=== PATIENT | male | born 1950 | race Caucasian/White ===

== ENCOUNTER 2018-03-30 09:40 | Emergency (ER) | payer MEDICARE, BC, SELFPAY ==
[2018-03-30 09:43] VITALS: BP 127/70; PULSE 78; RESP 16; TEMP 36.6; O2SAT 96
[2018-03-30] MEDS: Cephalexin 500 MG CAP PO (10:16)
--- NOTE | 2018-03-30 10:25 | W.ED.GENAD ---
Discharge Plan Disposition Patient Disposition: HOME Condition: Stable Discharge Details Chief Complaint: Cellulitis Clinical Impression: Cellulitis of hand, right Primary Care Provider: Toi Hernandez ED Provider: Vance Rhodes Home Meds and New Rx's Prescriptions: New cephalexin [Keflex] 500 mg capsule 500 mg PO QID Qty: 20 RF: 0 Continue [id number] [Eye Drops (with povidone)] 15 ML drops 15 ml Ophthalmic RF: 0 folic acid 20 MG capsule 30 mg PO HS RF: 0 lithium carbonate 300 MG capsule 1,200 mg PO HS RF: 0 methotrexate sodium 2.5 MG tablet 2.5 mg PO DIRECTED RF: 0 levothyroxine [Synthroid] 75 MCG tablet 75 mcg PO HS RF: 0 prednisone 10 MG tablet 5 mg PO HS RF: 0 paroxetine HCl [Paxil] 30 MG tablet 30 mg PO HS RF: 0 Discharge Instructions Instructions: Cellulitis (ED) Additional Instructions: Is seeing significant worsening of symptoms over the next 24-48 hours please return immediately to the emergency department for reassessment otherwise take antibiotics until fully completed and if not improving he may follow back up with the emergency department or your primary care provider for reassessment. Otherwise keep wound clean and dry with mild soap and water. He may continue to use [id number] pain medication as needed for discomfort. Referrals: Toi Hernandez MD [Primary Care Provider] - (As needed for reassessment or if not improving.) Medical Decision Making MDM Narrative Medical decision making narrative: Patient presenting to the emergency department for chief complaint of right hand pain swelling and redness. Patient does have some small abrasions to the dorsal aspect of the hand that he states occurred approximately a week ago and had been healing fine but over the last 2 days he has noticed redness warmth swelling and aching burning and itching sensation that is getting worse and not improving. Patient denies any other medical complaints at this time. Chief working diagnosis is localized cellulitis so patient placed upon Keflex 4 times daily for 5 days and encouraged to return for new or worsening symptoms otherwise follow-up with his primary care provider as needed. After discussion of diagnosis and plan of care patient states no further needs, questions, or concerns at this time HPI - General Adult General Mode of arrival: ambulatory. Date/Time Provider Initiated Documentation: 03/30/18 09:47. Limitations to Documentation: no limitations. Information obtained by: patient and RN notes reviewed. History of Present Illness described as moderate, with intensity rated at 6. Quality is described as burning, aching and other (itchy), and is localized to the right and upper extremity (Hand). Patient reports no radiation. Patient started experiencing this day(s) (2) and it has been constant. No relieving factors improve symptom(s), No exacerbating factors reported . Patient notes no other symptoms.. Related Data Home Medications Medication Instructions Recorded Confirmed folic acid 30 mg PO HS 05/05/13 03/30/18 levothyroxine [Synthroid] 75 mcg PO HS 05/05/13 03/30/18 lithium carbonate 1,200 mg PO HS 05/05/13 03/30/18 methotrexate sodium 2.5 mg PO DIRECTED 05/05/13 03/30/18 paroxetine HCl [Paxil] 30 mg PO HS 05/06/13 03/30/18 prednisone 5 mg PO HS 05/06/13 03/30/18 [id number] 15 ml OPHTHALMIC 12/29/17 [Eye Drops (with povidone)] Previous Rx's Medication Instructions Recorded cephalexin [Keflex] 500 mg PO QID #20 cap NS 03/30/18 Allergies Allergy/AdvReac Type Severity Reaction Status Date / Time No Known Drug Allergies Allergy Unverified 12/29/17 14:28 General Stated Complaint: Cellulitis ASHLEY: 4 Review of Systems Constitutional Denies body ache(s), Denies chills and Denies fever(s) Cardiovascular Denies chest pain and Denies dyspnea Respiratory Denies dyspnea Gastrointestinal Denies abdominal pain and Denies vomiting Integumentary/Breasts Reports as per HPI, Reports erythema and Reports sores Neurologic Denies confusion and Denies sensory deficit Psychiatric Denies confusion PFSH Social History Smoking/Tobacco Use Status: Never Exam Const General: cooperative, no acute distress and not ill appearing Orientation: alert, awake and oriented x3 HENMT Mouth: moist mucous membranes Resp Effort & Inspection: normal respiratory effort, able to speak in complete sentences and no respiratory distress Cardio Rate: regular rate Rhythm: regular rhythm Neuro General: alert, awake, oriented x3, moves all extremities and no focal motor deficits Sensory Exam: no sensory deficits noted Extrem General: full ROM and normal capillary refill Right upper extremity: full ROM, normal capillary refill, elbow/forearm Details: normal to inspection, wrist Details: normal to inspection and hand Details: normal capillary refill, neuromotor exam normal, neurosensory exam normal and swelling Location: of the dorsal hand (Patient has 2 abrasions to the dorsal aspect of the hand with swelling, erythema, and warmth) Left upper extremity: normal to inspection Course Vital Signs Temperature 36.6 C 03/30/18 09:43 Pulse 78 03/30/18 09:43 Respiratory Rate 16 03/30/18 09:43 Blood Pressure 127/70 03/30/18 09:43 Pulse Oximetry 96 03/30/18 09:43 Temperature 36.6 C 03/30/18 09:43 Pulse 78 03/30/18 09:43 Respiratory Rate 16 03/30/18 09:43 Blood Pressure 127/70 03/30/18 09:43 Pulse Oximetry 96 03/30/18 09:43
--- NOTE | 2018-03-30 10:31 | ED.GENADUL_ITS ---
Discharge Plan Disposition Patient Disposition: HOME Condition: Stable Discharge Details Chief Complaint: Cellulitis Clinical Impression: Cellulitis of hand, right Primary Care Provider: Toi Hernandez ED Provider: Vance Rhodes Home Meds and New Rx's Prescriptions: New cephalexin [Keflex] 500 mg capsule 500 mg PO QID Qty: 20 RF: 0 Continue [id number] [Eye Drops (with povidone)] 15 ML drops 15 ml Ophthalmic RF: 0 folic acid 20 MG capsule 30 mg PO HS RF: 0 lithium carbonate 300 MG capsule 1,200 mg PO HS RF: 0 methotrexate sodium 2.5 MG tablet 2.5 mg PO DIRECTED RF: 0 levothyroxine [Synthroid] 75 MCG tablet 75 mcg PO HS RF: 0 prednisone 10 MG tablet 5 mg PO HS RF: 0 paroxetine HCl [Paxil] 30 MG tablet 30 mg PO HS RF: 0 Discharge Instructions Instructions: Cellulitis (ED) Additional Instructions: Is seeing significant worsening of symptoms over the next 24-48 hours please return immediately to the emergency department for reassessment otherwise take antibiotics until fully completed and if not improving he may follow back up with the emergency department or your primary care provider for reassessment. Otherwise keep wound clean and dry with mild soap and water. He may continue to use [id number] pain medication as needed for discomfort. Referrals: Toi Hernandez MD [Primary Care Provider] - (As needed for reassessment or if not improving.) Medical Decision Making MDM Narrative Medical decision making narrative: Patient presenting to the emergency department for chief complaint of right hand pain swelling and redness. Patient does have some small abrasions to the dorsal aspect of the hand that he states occurred approximately a week ago and had been healing fine but over the last 2 days he has noticed redness warmth swelling and aching burning and itching sensation that is getting worse and not improving. Patient denies any other medical complaints at this time. Chief working diagnosis is localized cellulitis so patient placed upon Keflex 4 times daily for 5 days and encouraged to return for new or worsening symptoms otherwise follow-up with his primary care provider as needed. After discussion of diagnosis and plan of care patient states no further needs, questions, or concerns at this time HPI - General Adult General Mode of arrival: ambulatory . Date/Time Provider Initiated Documentation: 03/30/18 09:47 . Limitations to Documentation: no limitations . Information obtained by: patient and RN notes reviewed . History of Present Illness described as moderate, with intensity rated at 6. Quality is described as burning, aching and other (itchy), and is localized to the right and upper extremity (Hand). Patient reports no radiation. Patient started experiencing this day(s) (2) and it has been constant. No relieving factors improve symptom(s), No exacerbating factors reported . Patient notes no other symptoms.. Related Data Home Medications Medication Instructions Recorded Confirmed folic acid 30 mg PO HS 05/05/13 03/30/18 levothyroxine [Synthroid] 75 mcg PO HS 05/05/13 03/30/18 lithium carbonate 1,200 mg PO HS 05/05/13 03/30/18 methotrexate sodium 2.5 mg PO DIRECTED 05/05/13 03/30/18 paroxetine HCl [Paxil] 30 mg PO HS 05/06/13 03/30/18 prednisone 5 mg PO HS 05/06/13 03/30/18 [id number] 15 ml OPHTHALMIC 12/29/17 [Eye Drops (with povidone)] Previous Rx's Medication Instructions Recorded cephalexin [Keflex] 500 mg PO QID #20 cap NS 03/30/18 Allergies Allergy/AdvReac Type Severity Reaction Status Date / Time No Known Drug Allergies Allergy Unverified 12/29/17 14:28 General Stated Complaint: Cellulitis ASHLEY: 4 Review of Systems Constitutional Denies body ache(s), Denies chills and Denies fever(s) Cardiovascular Denies chest pain and Denies dyspnea Respiratory Denies dyspnea Gastrointestinal Denies abdominal pain and Denies vomiting Integumentary/Breasts Reports as per HPI, Reports erythema and Reports sores Neurologic Denies confusion and Denies sensory deficit Psychiatric Denies confusion PFSH Social History Smoking/Tobacco Use Status: Never Exam Const General: cooperative, no acute distress and not ill appearing Orientation: alert, awake and oriented x3 HENMT Mouth: moist mucous membranes Resp Effort & Inspection: normal respiratory effort, able to speak in complete sentences and no respiratory distress Cardio Rate: regular rate Rhythm: regular rhythm Neuro General: alert, awake, oriented x3, moves all extremities and no focal motor deficits Sensory Exam: no sensory deficits noted Extrem General: full ROM and normal capillary refill Right upper extremity: full ROM, normal capillary refill, elbow/forearm Details : normal to inspection, wrist Details: normal to inspection and hand Details: normal capillary refill, neuromotor exam normal, neurosensory exam normal and swelling Location: of the dorsal hand (Patient has 2 abrasions to the dorsal aspect of the hand with swelling, erythema, and warmth) Left upper extremity: normal to inspection Course Vital Signs Temperature 36.6 C 03/30/18 09:43 Pulse 78 03/30/18 09:43 Respiratory Rate 16 03/30/18 09:43 Blood Pressure 127/70 03/30/18 09:43 Pulse Oximetry 96 03/30/18 09:43 Temperature 36.6 C 03/30/18 09:43 Pulse 78 03/30/18 09:43 Respiratory Rate 16 03/30/18 09:43 Blood Pressure 127/70 03/30/18 09:43 Pulse Oximetry 96 03/30/18 09:43
== END 2018-03-30 10:39 | disposition home or self-care (01) ==
PROVIDERS: Emergency Provider Nurse Practitioner Family; PCP General Practice
DX: L03.113 Cellulitis of right upper limb (principal)
CPT/HCPCS: 99283

== ENCOUNTER 2018-06-23 10:05 | Outpatient (CLI) | payer MEDICARE, BC, SELFPAY ==
[2018-06-24 10:45] LABS: PSA, Diagnostic 0.3 ng/ml (0-4.5)
== END 2018-06-23 10:25 ==
PROVIDERS: PCP General Practice; Visit Provider Urology
DX: N42.9 Disorder of prostate, unspecified (principal)
CPT/HCPCS: 36415; 84153

== ENCOUNTER → 2018-06-28 09:03 | Outpatient (BNVA) | payer MEDICARE, BC, SELFPAY | PROVIDERS: PCP General Practice; Visit Provider Urology | DX: N42.9 Disorder of prostate, unspecified (principal) | CPT/HCPCS: 99213 ==

== ENCOUNTER 2019-06-21 11:55 | Outpatient (CLI) | payer MEDICARE, BC, SELFPAY ==
[2019-06-22 09:13] LABS: PSA, Screening 0.4 ng/mL (0.0-4.5)
== END 2019-06-21 12:15 ==
PROVIDERS: PCP Nurse Practitioner; Visit Provider Urology
DX: R39.15 Urgency of urination (principal); Z12.5 Encounter for screening for malignant neoplasm of prostate
CPT/HCPCS: 36415; 84153

== ENCOUNTER → 2019-07-01 09:47 | Outpatient (BNVA) | payer MEDICARE, BC, SELFPAY | PROVIDERS: PCP Nurse Practitioner; Referring Provider General Practice; Visit Provider Urology | DX: N40.2 Nodular prostate without lower urinary tract symptoms (principal) | CPT/HCPCS: 99213 ==

== ENCOUNTER 2020-01-25 01:08 | Outpatient (CLI) | payer MEDICARE, BC, SELFPAY ==
[2020-01-25 12:06] LABS: Abs Immature Grans 0.02 k/cumm (0.0-0.09); Absolute Basophil Count 0.02 k/cumm (0.0-0.2); Absolute Eosinophil Count 0.08 k/cumm (0.0-0.7); Absolute Lymphocyte Count 1.27 k/cumm (1.2-3.4); Absolute Monocyte Count 0.75 k/cumm (0.11-0.7); Absolute Neutrophil Count 3.35 k/cumm (1.2-6.7); Basophils % 0.4; Eosinophils % 1.5; HCT 40.2 % (40.0-50.0); HGB 12.9 g/dL (13.5-17.5); Immature Grans % 0.4 %; Lymphocytes % 23.1; Mean Corp. HGB Concentration 32.1 g/dL (32.0-36.0); Mean Corpuscular Hemoglobin 29.9 pg (27.0-33.0); Mean Corpuscular Volume 93.3 fL (80-95); Mean Platelet Volume 9.8 fL (8.0-11.0); Monocytes % 13.7; Neutrophils % 60.9; Platelet Count 270 x1000/uL (130-400); RBC 4.31 m/cumm (4.50-6.00); RBC Distribution Width 16.6 % (11.8-14.1); White Blood Cell Count 5.49 k/cumm (4.4-10.8)
[2020-01-25 13:08] LABS: ALT 26 U/L (16-63); AST 23 U/L (15-37); Albumin 3.9 g/dL (3.4-5.0); Alkaline Phosphatase 154 U/L (46-116); Anion Gap 9.6 mmol/L (3-11); BUN 23 mg/dL (7-18); Bilirubin, Total 0.5 mg/dL (0.2-1.0); CO2 24.4 mmol/L (21.0-32.0); CREATININE 0.92 mg/dL (0.70-1.30); Calcium 9.4 mg/dL (8.5-10.1); Chloride 106 mmol/L (98-107); Glucose 82 mg/dL (74-106); Potassium 4.3 mmol/L (3.5-5.1); Sodium 140 mmol/L (136-145); Total Protein 6.8 g/dL (6.4-8.2)
== END 2020-01-25 01:28 ==
PROVIDERS: PCP Nurse Practitioner; Visit Provider Internal Medicine
DX: L40.50 Arthropathic psoriasis, unspecified (principal); Z79.899 Other long term (current) drug therapy
CPT/HCPCS: 36415; 80053; 85025

== ENCOUNTER 2020-08-10 02:09 | Outpatient (CLI) | payer MEDICARE, BC, SELFPAY ==
[2020-08-10 08:31] LABS: Absolute Basophil Count 0.02 10^3/uL (0.0-0.2); Absolute Eosinophil Count 0.07 10^3/uL (0.0-0.7); Absolute Lymphocyte Count 1.35 10^3/uL (1.2-3.4); Absolute Monocyte Count 0.79 10^3/uL (0.1-0.8); Absolute Neutrophil Count 1.58 10^3/uL (1.2-6.7); Basophils % 0.5; Eosinophils % 1.8; HCT 43.1 % (40.0-50.0); HGB 13.5 g/dL (13.5-17.5); Immature Grans % 2.6; Lymphocytes % 34.5; MCH 29.3 pg (27.0-33.0); MCHC 31.3 % (32.0-36.0); MCV 93.7 fL (80-95); Monocytes % 20.2; Neutrophils % 40.4; Nucleated RBC 0 %; Platelet Count 198 10^3/uL (130-400); RDW 16.8 % (11.8-14.1); RDW-SD 57.3 fL; WBC 3.91 10^3/uL (4.4-10.8)
[2020-08-10 09:23] LABS: ALT 36 U/L (16-63); AST 27 U/L (15-37); Albumin 4.1 g/dL (3.4-5.0); Alkaline Phosphatase 127 U/L (46-116); Anion Gap 7.7 mmol/L (3-11); BUN 17 mg/dL (7-18); Bilirubin, Total 0.7 mg/dL (0.2-1.0); CO2 24.3 mmol/L (21.0-32.0); CREATININE 0.8 mg/dL (0.70-1.30); Calcium 8.9 mg/dL (8.5-10.1); Chloride 105 mmol/L (98-107); Glucose 86 mg/dL (74-106); Potassium 4.2 mmol/L (3.5-5.1); Sodium 137 mmol/L (136-145); Total Protein 6.9 g/dL (6.4-8.2)
== END 2020-08-10 02:29 ==
PROVIDERS: PCP Nurse Practitioner; Visit Provider Internal Medicine
DX: L40.50 Arthropathic psoriasis, unspecified (principal); Z79.899 Other long term (current) drug therapy
CPT/HCPCS: 36415; 80053; 85025

== ENCOUNTER 2020-10-18 02:10 | Outpatient (CLI) | payer MEDICARE, BC, SELFPAY ==
[2020-10-18 08:45] LABS: Hemoglobin A1C 4.7 % (<5.7)
[2020-10-18 08:46] LABS: ALT 33 U/L (16-63); AST 23 U/L (15-37); Alkaline Phosphatase 134 U/L (46-116); Anion Gap 10.2 mmol/L (3-11); BUN 22 mg/dL (7-18); Bilirubin, Total 0.5 mg/dL (0.2-1.0); CO2 25.8 mmol/L (21.0-32.0); CREATININE 0.8 mg/dL (0.70-1.30); Calcium 9.1 mg/dL (8.5-10.1); Calculated LDL 139 mg/dL (<100); Chloride 107 mmol/L (98-107); Cholesterol 199 mg/dL (<200); Glucose 81 mg/dL (74-106); HDL Cholesterol 47 mg/dL (40-60); Potassium 4.6 mmol/L (3.5-5.1); Sodium 143 mmol/L (136-145); TSH (W/Ref FT4) 0.87 uIU/mL (0.36-3.74); Total Protein 6.8 g/dL (6.4-8.2); Triglyceride 69 mg/dL (<150)
[2020-10-18 08:49] LABS: Lithium 0.4 mmol/l (0.6-1.2)
[2020-10-18 17:32] LABS: PSA, Diagnostic 0.4 ng/mL (0.0-4.5)
== END 2020-10-18 02:11 | disposition home or self-care (01) ==
LOC: LBO 02:10
PROVIDERS: Urology; PCP Nurse Practitioner; Visit Provider Nurse Practitioner
DX: R73.03 Prediabetes (principal); E03.9 Hypothyroidism, unspecified; F31.9 Bipolar disorder, unspecified; N42.9 Disorder of prostate, unspecified; Z51.81 Encounter for therapeutic drug level monitoring; L40.50 Arthropathic psoriasis, unspecified
CPT/HCPCS: 36415; 80053; 80061; 80178; 83036; 84153; 84443

== ENCOUNTER → 2021-01-25 08:16 | Outpatient (BNVA) | payer MEDICARE, BC, SELFPAY | PROVIDERS: PCP Nurse Practitioner; Referring Provider Nurse Practitioner; Visit Provider Urology | DX: N42.9 Disorder of prostate, unspecified (principal); R35.0 Frequency of micturition; R39.15 Urgency of urination | CPT/HCPCS: 99213 ==

== ENCOUNTER 2021-01-29 02:40 | Outpatient (CLI) | payer MEDICARE, SELFPAY ==
[2021-01-29 09:24] LABS: Abs Immature Grans 0.03 10^3/uL (0.0-0.06); Absolute Basophil Count 0.02 10^3/uL (0.0-0.2); Absolute Eosinophil Count 0.11 10^3/uL (0.0-0.7); Absolute Lymphocyte Count 1.19 10^3/uL (1.2-3.4); Absolute Neutrophil Count 1.93 10^3/uL (1.2-6.7); Basophils % 0.6; Eosinophils % 3.1; HCT 42.1 % (40.0-50.0); HGB 13.2 g/dL (13.5-17.5); Immature Grans % 0.8; Lymphocytes % 33.2; MCH 28.8 pg (27.0-33.0); MCHC 31.4 % (32.0-36.0); MCV 91.7 fL (80-95); Monocytes % 8.4; Neutrophils % 53.9; Nucleated RBC 0 %; Platelet Count 232 10^3/uL (130-400); RBC 4.59 10^6/uL (4.36-5.78); RDW 17.2 % (11.8-14.1); RDW-SD 57.1 fL; WBC 3.58 10^3/uL (4.4-10.8)
[2021-01-29 10:18] LABS: ALT 34 U/L (16-63); AST 37 U/L (15-37); Albumin 4.2 g/dL (3.4-5.0); Alkaline Phosphatase 147 U/L (46-116); Anion Gap 10.2 mmol/L (3-11); BUN 21 mg/dL (7-18); Bilirubin, Total 0.6 mg/dL (0.2-1.0); CO2 23.8 mmol/L (21.0-32.0); CREATININE 0.9 mg/dL (0.70-1.30); Calcium 9.2 mg/dL (8.5-10.1); Chloride 108 mmol/L (98-107); Glucose 87 mg/dL (74-106); Potassium 4.4 mmol/L (3.5-5.1); Sodium 142 mmol/L (136-145)
== END 2021-01-29 02:41 | disposition home or self-care (01) ==
LOC: LBO 02:40
PROVIDERS: PCP Nurse Practitioner; Visit Provider Internal Medicine
DX: L40.50 Arthropathic psoriasis, unspecified (principal); Z79.899 Other long term (current) drug therapy
CPT/HCPCS: 36415; 80053; 85025

== ENCOUNTER 2021-05-15 03:18 | Outpatient (CLI) | payer MEDICARE, SELFPAY ==
[2021-05-15 07:52] LABS: Abs Immature Grans 0.06 10^3/uL (0.0-0.06); Absolute Basophil Count 0.02 10^3/uL (0.0-0.2); Absolute Eosinophil Count 0.07 10^3/uL (0.0-0.7); Absolute Lymphocyte Count 1.72 10^3/uL (1.2-3.4); Absolute Neutrophil Count 2.72 10^3/uL (1.2-6.7); Basophils % 0.4; Eosinophils % 1.3; HCT 43.5 % (40.0-50.0); HGB 13.3 g/dL (13.5-17.5); Immature Grans % 1.1; Lymphocytes % 31.9; MCH 28.6 pg (27.0-33.0); MCHC 30.6 % (32.0-36.0); MCV 93.5 fL (80-95); MPV 9.8 fL (8.0-11.0); Monocytes % 14.8; Neutrophils % 50.5; Nucleated RBC 0 %; Platelet Count 233 10^3/uL (130-400); RBC 4.65 10^6/uL (4.36-5.78); RDW 16.9 % (11.8-14.1); RDW-SD 57.3 fL; WBC 5.39 10^3/uL (4.4-10.8)
[2021-05-15 08:39] LABS: ALT 27 U/L (16-63); AST 28 U/L (15-37); Albumin 4.2 g/dL (3.4-5.0); Alkaline Phosphatase 157 U/L (46-116); Anion Gap 6.3 mmol/L (3-11); BUN 18 mg/dL (7-18); Bilirubin, Total 0.6 mg/dL (0.2-1.0); CO2 28.7 mmol/L (21.0-32.0); CREATININE 0.9 mg/dL (0.70-1.30); Calcium 9.3 mg/dL (8.5-10.1); Chloride 106 mmol/L (98-107); Glucose 85 mg/dL (74-106); Potassium 4.7 mmol/L (3.5-5.1); Sodium 141 mmol/L (136-145); Total Protein 7.3 g/dL (6.4-8.2)
== END 2021-05-15 03:19 | disposition home or self-care (01) ==
LOC: LBO 03:18
PROVIDERS: PCP Nurse Practitioner; Visit Provider Internal Medicine
DX: Z79.899 Other long term (current) drug therapy (principal); L40.50 Arthropathic psoriasis, unspecified
CPT/HCPCS: 36415; 80053; 85025

== ENCOUNTER 2021-09-17 08:23 | Outpatient (CLI) | payer MEDICARE, BC, SELFPAY ==
--- NOTE | 2021-09-17 08:15 | DI.RAD_ITS ---
Exam(s) XR SHOULDER RT COMPLETE 2+V EXAM: XR SHOULDER RT COMPLETE 2+V CLINICAL HISTORY: right shoulder pain. TECHNIQUE: 2D digital imaging was performed. COMPARISON: No exams were available for comparison FINDINGS: There is evidence of previous rotator cuff surgery. No fracture or dislocation. Moderate degenerati ve changes are noted in the glenohumeral joint. No soft tissue calcifications. No osseous lesions. Degenerative subarticular cysts are noted in the humeral head. IMPRESSION: DATA REPOSITORY: RADIATION DOSE DELIVERED:
== END 2021-09-17 08:24 | disposition home or self-care (01) ==
LOC: DIORS 08:23
PROVIDERS: PCP Nurse Practitioner; Referring Provider Nurse Practitioner; Visit Provider Student in an Organized Health Care Education/Training Program
DX: M25.511 Pain in right shoulder (principal); M75.21 Bicipital tendinitis, right shoulder; M75.101 Unspecified rotator cuff tear or rupture of right shoulder, not specified as traumatic
CPT/HCPCS: 20610; 99204; 99214; 73030; J1030

== ENCOUNTER → 2021-12-04 13:47 | Outpatient (BNVA) | payer MEDICARE, BC, SELFPAY | PROVIDERS: PCP Nurse Practitioner; Referring Provider Nurse Practitioner; Visit Provider Student in an Organized Health Care Education/Training Program | DX: M75.21 Bicipital tendinitis, right shoulder (principal); M75.101 Unspecified rotator cuff tear or rupture of right shoulder, not specified as traumatic; M19.011 Primary osteoarthritis, right shoulder | CPT/HCPCS: 99213 ==

== ENCOUNTER 2021-12-13 01:37 | Outpatient (CLI) | payer MEDICARE, BC, SELFPAY ==
[2021-12-13 07:29] LABS: Abs Immature Grans 0.06 10^3/uL (0.0-0.06); Absolute Basophil Count 0.02 10^3/uL (0.0-0.2); Absolute Eosinophil Count 0.07 10^3/uL (0.0-0.7); Absolute Lymphocyte Count 1.13 10^3/uL (1.2-3.4); Absolute Monocyte Count 1.09 10^3/uL (0.1-0.8); Absolute Neutrophil Count 2.08 10^3/uL (1.2-6.7); Basophils % 0.4; Eosinophils % 1.6; HCT 40.5 % (40.0-50.0); HGB 12.9 g/dL (13.5-17.5); Immature Grans % 1.3; Lymphocytes % 25.4; MCH 29.1 pg (27.0-33.0); MCHC 31.9 % (32.0-36.0); MCV 91 fL (80-95); MPV 9.8 fL (8.0-11.0); Monocytes % 24.5; Neutrophils % 46.8; Platelet Count 208 10^3/uL (130-400); RBC 4.44 10^6/uL (4.36-5.78); RDW 17.5 % (11.8-14.1); RDW-SD 58.3 fL; WBC 4.45 10^3/uL (4.4-10.8)
[2021-12-13 08:50] LABS: Lithium 0.5 mmol/l (0.6-1.2)
[2021-12-13 08:53] LABS: ALT 25 U/L (16-63); AST 22 U/L (15-37); Alkaline Phosphatase 151 U/L (46-116); Anion Gap 8.2 mmol/L (3-11); BUN 20 mg/dL (7-18); Bilirubin, Total 0.7 mg/dL (0.2-1.0); C-Reactive Protein 0.48 mg/dL (0.0-0.3); CO2 24.8 mmol/L (21.0-32.0); CREATININE 0.9 mg/dL (0.70-1.30); Calcium 9.1 mg/dL (8.5-10.1); Chloride 105 mmol/L (98-107); Glucose 79 mg/dL (74-106); Potassium 4.5 mmol/L (3.5-5.1); Sodium 138 mmol/L (136-145)
[2021-12-13 09:19] LABS: FREE T4 0.81 ng/dL (0.76-1.46)
== END 2021-12-13 01:38 | disposition home or self-care (01) ==
LOC: LBO 01:37
PROVIDERS: Internal Medicine; PCP Nurse Practitioner; Visit Provider Nurse Practitioner
DX: R41.3 Other amnesia (principal); F31.9 Bipolar disorder, unspecified; Z51.81 Encounter for therapeutic drug level monitoring; Z79.899 Other long term (current) drug therapy
CPT/HCPCS: 36415; 80053; 80178; 84439; 84443; 85025; 86140

== ENCOUNTER 2022-01-23 02:29 | Outpatient (CLI) | payer MEDICARE, BC, SELFPAY ==
[2022-01-23 22:31] LABS: PSA, Diagnostic 0.3 ng/mL (<=4.5)
== END 2022-01-23 02:30 | disposition home or self-care (01) ==
PROVIDERS: PCP Nurse Practitioner; Visit Provider Nurse Practitioner Gerontology
DX: N42.9 Disorder of prostate, unspecified (principal)
CPT/HCPCS: 36415; 84153

== ENCOUNTER → 2022-01-27 08:10 | Outpatient (BNVA) | payer MEDICARE, BC, SELFPAY | PROVIDERS: PCP Nurse Practitioner; Referring Provider Nurse Practitioner; Visit Provider Nurse Practitioner Gerontology | DX: N40.1 Benign prostatic hyperplasia with lower urinary tract symptoms (principal); R35.0 Frequency of micturition; N42.9 Disorder of prostate, unspecified | CPT/HCPCS: 99213 ==

== ENCOUNTER → 2022-04-17 14:53 | Outpatient (CLI) | payer MEDICARE, BC, SELFPAY ==
--- NOTE | 2022-04-17 09:30 | DI.RAD_ITS ---
Exam(s) XR KNEE LT 3V AP,LAT,ADRIANA EXAM: XR KNEE LT 3V AP,LAT,ADRIANA CLINICAL HISTORY: Lt knee pain, M25.562 TECHNIQUE: COMPARISON: CR RIGHT KNEE LIMITED 1 OR 2 VIEW from 08/15/2008 FINDINGS: Three views were obtained. There is moderate narrowing of the medial tibiofemoral cartilaginous join t space. Otherwise cartilaginous joint spaces appear fairly well maintained. There is a probable humphrey int effusion noted on the lateral view. There are mild marginal osteophytes of all 3 joints of the knee. No other significant bony abnormali ty seen. IMPRESSION: DJD predominantly involving medial tibiofemoral joint. RADIATION DOSE DELIVERED: Total DLP
== END ==
PROVIDERS: PCP Nurse Practitioner; Visit Provider Family Medicine
DX: M17.12 Unilateral primary osteoarthritis, left knee (principal)
CPT/HCPCS: 73562

== ENCOUNTER 2022-04-29 03:38 | Outpatient (CLI) | payer MEDICARE, BC, SELFPAY ==
[2022-04-29 13:16] LABS: Abs Immature Grans 0.04 10^3/uL (0.0-0.06); Absolute Basophil Count 0.01 10^3/uL (0.0-0.2); Absolute Eosinophil Count 0.08 10^3/uL (0.0-0.7); Absolute Lymphocyte Count 1.39 10^3/uL (1.2-3.4); Absolute Monocyte Count 0.68 10^3/uL (0.1-0.8); Absolute Neutrophil Count 3.54 10^3/uL (1.2-6.7); Basophils % 0.2; Eosinophils % 1.4; HCT 37.7 % (40.0-50.0); HGB 11.6 g/dL (13.5-17.5); Immature Grans % 0.7; Lymphocytes % 24.2; MCH 27.8 pg (27.0-33.0); MCHC 30.8 % (32.0-36.0); MCV 90 fL (80-95); MPV 10.2 fL (8.0-11.0); Monocytes % 11.8; Neutrophils % 61.7; Platelet Count 344 10^3/uL (130-400); RBC 4.18 10^6/uL (4.36-5.78); RDW 16.2 % (11.8-14.1); RDW-SD 53.9 fL; WBC 5.74 10^3/uL (4.4-10.8)
[2022-04-29 13:36] LABS: ALT 21 U/L (16-63); AST 34 U/L (15-37); Albumin 3.5 g/dL (3.4-5.0); Alkaline Phosphatase 160 U/L (46-116); Anion Gap 6.8 mmol/L (3-11); BUN 19 mg/dL (7-18); Bilirubin, Total 0.5 mg/dL (0.2-1.0); C-Reactive Protein 2.77 mg/dL (0.0-0.3); CO2 26.2 mmol/L (21.0-32.0); Calcium 9.4 mg/dL (8.5-10.1); Chloride 105 mmol/L (98-107); Estimated GFR 81.47 (mL/min/1.73m2); Glucose 101 mg/dL (74-106); Potassium 4.1 mmol/L (3.5-5.1); Sodium 138 mmol/L (136-145); Total Protein 7.7 g/dL (6.4-8.2)
[2022-04-29 22:57] LABS: PSA, Diagnostic 0.4 ng/mL (<=4.5)
== END 2022-04-29 03:39 | disposition home or self-care (01) ==
PROVIDERS: Nurse Practitioner Gerontology; PCP Nurse Practitioner; Visit Provider Internal Medicine
DX: L40.50 Arthropathic psoriasis, unspecified; Z79.899 Other long term (current) drug therapy; N42.9 Disorder of prostate, unspecified
CPT/HCPCS: 36415; 80053; 84153; 85025; 86140

== ENCOUNTER → 2022-04-30 11:16 | Outpatient (BNVA) | payer MEDICARE, BC, SELFPAY | PROVIDERS: PCP Nurse Practitioner; Referring Provider Nurse Practitioner; Visit Provider Student in an Organized Health Care Education/Training Program | DX: S83.412A Sprain of medial collateral ligament of left knee, initial encounter (principal); X58.XXXA Exposure to other specified factors, initial encounter | CPT/HCPCS: 99214; J1030 ==

== ENCOUNTER 2022-05-16 00:25 | Outpatient (CLI) | payer MEDICARE, BC, SELFPAY ==
--- NOTE | 2022-05-16 08:15 | DI.MRI_ITS ---
Exam(s) MR LOWER JOINT LT WO EXAM: MR LOWER JOINT LT WO CLINICAL HISTORY: L KNEE PAIN, ? MCL, ? ACL,M25.562 TECHNIQUE: Multiplanar multisequence MRI of the knee was performed. COMPARISON: CR XR KNEE LT 3V AP,LAT,ADRIANA from 04/17/2022 FINDINGS: EFFUSION: Is moderate size knee joint effusion with synovial thickening. There is no significant Radha er's cyst in the popliteal fossa. MARROW: There is bone contusion signal seen in the medial half of the tibial plateau extending down into the metaphysis with relative sparing of the lateral tibial plateau. There is a degenerative suba rticular cyst subjacent tibial spines, measuring 5 x 6 millimeters. Also bone edema evident in the pa tella, posteriorly. No ominous osseous lesions. PATELLOFEMORAL COMPARTMENT: The quadriceps tendon is intact. The patellar ligament is intact. There is significant thinning of the retropatellar cartilage, more so over the lateral than the media l facet where there is some full-thickness thinning superiorly and there is subarticular edema in the posterior patella. No intraosseous signal to suggest recent patellar dislocation and there are no p atellar retinacular tears.There is no intraosseous signal to suggest recent patellar dislocation. The re are no patellar retinacular tears. CRUCIATE LIGAMENTS: There is abnormal signal throughout the ACL consistent with intrasubstance tearin g. Few fascicular bundles are still present but are discontinuous.The posterior cruciate ligament is intact. MEDIAL COMPARTMENT/MEDIAL MENISCUS: There is significant narrowing of the medial compartment and ther e are tears of both the anterior posterior horns of medial meniscus. There is also some truncation o f the medial meniscus which may reflect prior surgery. There is thinning of the cartilage over the m edial femoral condyle. Over in the anterior weight-bearing surface this is full-thickness but not as sociated with prominent subarticular edema in the medial condyle. There are no osteochondral defects .. There are no osteophytes in the medial compartment. MEDIAL COLLATERAL LIGAMENT: There is fluid interposed between the superficial and deep components of the MCL. However no high-grade full-thickness tear of this structure evident. LATERAL COMPARTMENT/LATERAL MENISCUS: There is an element of truncation of the medial aspect of the l ateral meniscus. Main components of the anterior and posterior horns are relatively intact. No prom inent bone edema in the medial compartment. Some degenerative cartilage loss, most prominent over th e mid aspect of the weight-bearing surface.There are no osteophytes in the lateral compartment. ILIOTIBIAL BAND: Intact LATERAL COLLATERAL LIGAMENT COMPLEX: Fibular collateral ligament and biceps femoris component are int act. However, there is significant signal abnormality in the popliteus muscle and fluid at the muscu lotendinous junction. However, the popliteus tendon does not appear torn nor displaced. IMPRESSION: 1. Significant abnormal signal throughout the anterior cruciate ligament consistent with tear of this structure. PCL is intact 2. There are tears and tiffanie a martin of both horns of the medial meniscus as well as degenerative khan ges in the medial compartment and subarticular bone edema in the medial compartment including the tib ial plateau. 3. Fluid seen between the superficial and deep components of the medial collateral ligament. However , there is no full-thickness tear of this structure. 4. Chondromalacia of the retropatellar cartilage noted with some full-thickness thinning over the lat eral facet and subjacent edema in the patella. 5. Popliteus muscle edema and fluid at the musculotendinous junction this component of the lateral c ollateral ligament complex. However, there is no high-grade tear of this structure and the other 2 c omponents of the LCL complex are intact. Other findings as above DATA REPOSITORY:
== END 2022-05-16 00:45 ==
LOC: DI 00:26
PROVIDERS: PCP Nurse Practitioner; Visit Provider Student in an Organized Health Care Education/Training Program
DX: M22.42 Chondromalacia patellae, left knee (principal); S83.242A Other tear of medial meniscus, current injury, left knee, initial encounter; X58.XXXA Exposure to other specified factors, initial encounter
CPT/HCPCS: 73721

== ENCOUNTER → 2022-06-17 08:19 | Outpatient (BNVA) | payer MEDICARE, BC, SELFPAY | PROVIDERS: PCP Nurse Practitioner Family; Referring Provider Nurse Practitioner; Visit Provider Student in an Organized Health Care Education/Training Program | DX: M17.12 Unilateral primary osteoarthritis, left knee (principal); X58.XXXA Exposure to other specified factors, initial encounter; S83.412A Sprain of medial collateral ligament of left knee, initial encounter | CPT/HCPCS: 20610; 99214; J1030 ==

== ENCOUNTER 2022-08-19 09:03 | Outpatient (CLI) | payer MEDICARE, BC, SELFPAY ==
--- NOTE | 2022-08-19 08:30 | DI.RAD_ITS ---
Exam(s) XR SHOULDER LT COMPLETE 2+V EXAM: XR SHOULDER LT COMPLETE 2+V CLINICAL HISTORY: left shoulder pain. TECHNIQUE: 2D digital imaging was performed. COMPARISON: CR XR SHOULDER RT COMPLETE 2+V from 09/17/2021 FINDINGS: Two views: No evidence fracture nor dislocation nor abnormal soft tissue calcifications in the subacromial space . There is widening of the AC joint which may be related to prior surgery. There are mild-moderate degenerative changes in the glenohumeral joint evident. No significant osseous lesions. IMPRESSION: Moderate degenerative changes in the glenohumeral joint. Possible prior surgery given the appearance of the AC joint. I note that this patient has had prior surgery in the opposite-right shoulder. DATA REPOSITORY: RADIATION DOSE DELIVERED:
== END 2022-08-19 09:04 | disposition home or self-care (01) ==
LOC: DIORS 09:04
PROVIDERS: PCP Nurse Practitioner Family; Referring Provider Nurse Practitioner Family; Visit Provider Student in an Organized Health Care Education/Training Program
DX: M75.101 Unspecified rotator cuff tear or rupture of right shoulder, not specified as traumatic (principal); M75.21 Bicipital tendinitis, right shoulder; M19.011 Primary osteoarthritis, right shoulder; M19.012 Primary osteoarthritis, left shoulder; M17.12 Unilateral primary osteoarthritis, left knee; S83.512A Sprain of anterior cruciate ligament of left knee, initial encounter; X58.XXXA Exposure to other specified factors, initial encounter
CPT/HCPCS: 20610; 99214; 73030; J1030

== ENCOUNTER → 2022-09-26 08:31 | Outpatient (BNVA) | payer MEDICARE, BC, SELFPAY | PROVIDERS: PCP Nurse Practitioner Family; Referring Provider Nurse Practitioner Family; Visit Provider Student in an Organized Health Care Education/Training Program | DX: M17.12 Unilateral primary osteoarthritis, left knee (principal) | CPT/HCPCS: 99213 ==

== ENCOUNTER 2022-11-14 15:16 | Outpatient (CLI) | payer MEDICARE, BC, SELFPAY ==
[2022-11-14 09:06] LABS: TSH 2.34 uIU/mL (0.36-3.74)
[2022-11-17 12:50] LABS: Lyme Ab w Rflx to Lyme Confirm Negative (Negative)
[2022-11-18 14:51] LABS: Anaplasma phagocytophilum Negative (Negative); B. miyamotoi PCR Negative (Negative); Babesia divergens/MO-1 Negative (Negative); Babesia duncani Negative (Negative); Babesia microti Negative (Negative); Ehrlichia chaffeensis Negative (Negative); Ehrlichia ewingii/canis Negative (Negative); Ehrlichia muris eauclairensis Negative (Negative)
== END 2022-11-14 15:17 | disposition home or self-care (01) ==
LOC: LBO 15:17
PROVIDERS: PCP Nurse Practitioner Family; Visit Provider Nurse Practitioner Family
DX: E03.9 Hypothyroidism, unspecified (principal); R53.83 Other fatigue; R41.3 Other amnesia
CPT/HCPCS: 36415; 87798; 84443; 86618

== ENCOUNTER 2023-01-19 02:47 | Outpatient (CLI) | payer MEDICARE, BC, SELFPAY ==
[2023-01-20 17:26] LABS: PSA, Diagnostic 0.3 ng/mL (<=6.5)
== END 2023-01-19 02:48 | disposition home or self-care (01) ==
LOC: LBO 02:48
PROVIDERS: PCP Nurse Practitioner Family; Visit Provider Nurse Practitioner Gerontology
DX: N42.9 Disorder of prostate, unspecified (principal); R39.89 Other symptoms and signs involving the genitourinary system
CPT/HCPCS: 36415; 84153

== ENCOUNTER → 2023-01-26 08:10 | Outpatient (BNVA) | payer MEDICARE, BC, SELFPAY | PROVIDERS: PCP Nurse Practitioner Family; Visit Provider Nurse Practitioner Gerontology | DX: N42.9 Disorder of prostate, unspecified (principal) | CPT/HCPCS: 99213 ==

== ENCOUNTER → 2023-02-04 10:28 | Outpatient (BNVA) | payer MEDICARE, BC, SELFPAY | PROVIDERS: PCP Nurse Practitioner Family; Referring Provider Nurse Practitioner Family; Visit Provider Student in an Organized Health Care Education/Training Program | DX: M75.21 Bicipital tendinitis, right shoulder (principal); M19.011 Primary osteoarthritis, right shoulder; M19.012 Primary osteoarthritis, left shoulder | CPT/HCPCS: 20610; 99213; J1030 ==

== ENCOUNTER 2023-02-12 09:54 | Outpatient (CLI) | payer MEDICARE, BC, SELFPAY ==
[2023-02-12 09:26] LABS: Abs Immature Grans 0.04 10^3/uL (0.0-0.06); Absolute Basophil Count 0.03 10^3/uL (0.0-0.2); Absolute Eosinophil Count 0.06 10^3/uL (0.0-0.7); Absolute Lymphocyte Count 1.29 10^3/uL (1.2-3.4); Absolute Monocyte Count 0.69 10^3/uL (0.1-0.8); Absolute Neutrophil Count 4.05 10^3/uL (1.2-6.7); Basophils % 0.5; HCT 40.7 % (40.0-50.0); HGB 13.1 g/dL (13.5-17.5); Immature Grans % 0.6; Lymphocytes % 20.9; MCH 28.4 pg (27.0-33.0); MCHC 32.2 % (32.0-36.0); MCV 88 fL (80-95); MPV 10.3 fL (8.0-11.0); Monocytes % 11.2; Neutrophils % 65.8; Platelet Count 293 10^3/uL (130-400); RBC 4.61 10^6/uL (4.36-5.78); RDW 17.3 % (11.8-14.1); RDW-SD 54.6 fL; WBC 6.16 10^3/uL (4.4-10.8)
[2023-02-12 09:34] LABS: ESR 12 mm/hr (0-20)
[2023-02-12 09:37] LABS: ALT 23 U/L (16-63); AST 19 U/L (15-37); Alkaline Phosphatase 142 U/L (46-116); Anion Gap 8.7 mmol/L (3-11); BUN 22 mg/dL (7-18); Bilirubin, Total 0.5 mg/dL (0.2-1.0); CO2 23.3 mmol/L (21.0-32.0); Chloride 106 mmol/L (98-107); Estimated GFR 80.97 (mL/min/1.73m2); Glucose 101 mg/dL (74-106); Potassium 3.9 mmol/L (3.5-5.1); Sodium 138 mmol/L (136-145); Total Protein 7.4 g/dL (6.4-8.2)
== END 2023-02-12 09:55 | disposition home or self-care (01) ==
LOC: LBO 09:55
PROVIDERS: PCP Nurse Practitioner Family; Visit Provider Internal Medicine
DX: Z79.899 Other long term (current) drug therapy (principal); L40.50 Arthropathic psoriasis, unspecified
CPT/HCPCS: 36415; 80053; 85652; 85025

== ENCOUNTER 2023-04-17 09:44 | Outpatient (CLI) | payer MEDICARE, BC, SELFPAY ==
--- NOTE | 2023-04-17 08:45 | DI.RAD_ITS ---
Exam(s) XR HIP RT COMPLETE AP PELVIS EXAM: XR HIP RT COMPLETE AP PELVIS CLINICAL HISTORY: RIGHT HIP PAIN. TECHNIQUE: 2D digital imaging was performed. Two views COMPARISON: No exams were available for comparison FINDINGS: BONES: No acute fracture is present. No bony destructive lesion is seen. JOINTS: No dislocation present. Mild left hip joint space narrowing. Moderate right joint space na rrowing. Mild spurring at the acetabulum. Subchondral cyst in superior acetabulum. Mild degenerati ve changes of the SI joints. Pubic symphysis unremarkable. SOFT TISSUE: Normal. IMPRESSION: Moderate degenerative changes of the right hip. Mild degenerative changes of the left hip. DATA REPOSITORY: RADIATION DOSE DELIVERED:
== END 2023-04-17 09:45 | disposition home or self-care (01) ==
LOC: DIORS 09:45
PROVIDERS: PCP Nurse Practitioner Family; Referring Provider Nurse Practitioner Family; Visit Provider Student in an Organized Health Care Education/Training Program
DX: M25.551 Pain in right hip (principal); M16.11 Unilateral primary osteoarthritis, right hip; M25.851 Other specified joint disorders, right hip; M25.852 Other specified joint disorders, left hip
CPT/HCPCS: 99214; 73502

== ENCOUNTER → 2023-04-21 08:47 | Outpatient (BNVA) | payer MEDICARE, BC, SELFPAY | PROVIDERS: PCP Nurse Practitioner Family; Referring Provider Nurse Practitioner Family; Visit Provider Student in an Organized Health Care Education/Training Program | DX: M19.012 Primary osteoarthritis, left shoulder (principal); M19.011 Primary osteoarthritis, right shoulder; M75.21 Bicipital tendinitis, right shoulder | CPT/HCPCS: 99213 ==

== ENCOUNTER → 2023-04-30 13:48 | Outpatient (BNVA) | payer MEDICARE, BC, SELFPAY | PROVIDERS: PCP Nurse Practitioner Family; Referring Provider Nurse Practitioner Family; Visit Provider Physician Assistant | DX: M16.11 Unilateral primary osteoarthritis, right hip (principal) | CPT/HCPCS: 20611; J1040 ==

== ENCOUNTER 2023-07-20 13:58 | Outpatient (CLI) | payer MEDICARE, BC, SELFPAY ==
[2023-07-20 13:19] LABS: Abs Immature Grans 0.02 10^3/uL (0.0-0.06); Absolute Basophil Count 0.03 10^3/uL (0.0-0.2); Absolute Lymphocyte Count 1.78 10^3/uL (1.2-3.4); Absolute Monocyte Count 0.48 10^3/uL (0.1-0.8); Absolute Neutrophil Count 3.29 10^3/uL (1.2-6.7); Basophils % 0.5; Eosinophils % 1.8; HCT 42.1 % (40.0-50.0); HGB 13.2 g/dL (13.5-17.5); Immature Grans % 0.4; Lymphocytes % 31.2; MCH 27.7 pg (27.0-33.0); MCHC 31.4 % (32.0-36.0); MCV 88 fL (80-95); MPV 9.6 fL (8.0-11.0); Monocytes % 8.4; Neutrophils % 57.7; Platelet Count 284 10^3/uL (130-400); RBC 4.76 10^6/uL (4.36-5.78); RDW 17.3 % (11.8-14.1); RDW-SD 56.2 fL
== END 2023-07-20 13:59 | disposition home or self-care (01) ==
LOC: LBO 13:58
PROVIDERS: PCP Nurse Practitioner Family; Visit Provider Internal Medicine
DX: L40.50 Arthropathic psoriasis, unspecified (principal)
CPT/HCPCS: 36415; 85025

== ENCOUNTER 2023-08-13 09:54 | Outpatient (CLI) | payer MEDICARE, BC, SELFPAY ==
[2023-08-13 12:59] LABS: Vitamin B12 483 pg/mL (193-986)
[2023-08-13 13:21] LABS: Lithium 0.5 mmol/l (0.6-1.2)
== END 2023-08-13 09:55 | disposition home or self-care (01) ==
LOC: LOS 09:55
PROVIDERS: PCP Nurse Practitioner Family; Visit Provider Nurse Practitioner Family
DX: E53.8 Deficiency of other specified B group vitamins (principal); F31.9 Bipolar disorder, unspecified; Z51.81 Encounter for therapeutic drug level monitoring
CPT/HCPCS: 36415; 80178; 82607

== ENCOUNTER 2023-11-06 11:44 | Day surgery (SDC) | payer MEDICARE, BC, SELFPAY ==
--- NOTE | 2023-11-06 12:30 | ANES.PREOP_ITS ---
General Info Date of Service Date Performed: 11/06/23 Height: 6 ft 2 in Weight: 92.986 kg Body Mass Index (BMI): 26.3 Surgical Procedure: Operation Date: 11/06/23 15:25 Proposed Procedure Side Surgeon p Cataract Extraction with IOL Implant w/Glaucoma Stent Right Errol Bermudez MD Meds Allergies and Home Medications Allergies Allergy/AdvReac Type Severity Reaction Status Date / Time No Known Allergies Allergy Verified 11/06/23 12:52 Home Medication Medication Instructions Recorded tetrahydrozoline 0.05 %- 15 ml ophthalmic (eye) DIRECTED 12/29/17 0.1 %[id number] 1 %-povdn 1 % eye drops (Eye Drops (with povidone)) naproxen sodium 220 mg capsule 220 mg PO BID PRN 06/17/22 (Aleve) folic acid 1 mg tablet 1 mg PO DAILY 02/12/23 methotrexate sodium 2.5 mg tablet 15 mg PO QWEEK 02/12/23 levothyroxine 75 mcg tablet 75 mcg PO HS #90 tabs 02/19/23 (Synthroid) lithium carbonate 300 mg capsule 600 mg (2 x 300 mg) PO HS #180 caps 04/06/23 paroxetine HCl 20 mg tablet 20 mg PO DAILY #90 tabs 09/01/23 Current Visit Medications: Current Medications Generic Name Dose Route Start Last Admin Trade Name Freq PRN Reason Stop Dose Admin Acetaminophen 1,000 mg 11/06/23 06:00 Acetaminophen 500 Mg Tab PO 12/06/23 05:59 Q4H PRN PRN Balanced Salt Solution 500 ml 11/06/23 06:00 Balanced Salt Soln.-Plus 500 Ml Bag OP 12/06/23 05:59 DIRECTED [facility] Miscellaneous Medication 0 ml 11/06/23 06:00 Prednisolone 1%, Moxifloxacin 0.5%, Bromfenac 0.09% 5ml Btl OD 12/06/23 05:59 DIRECTED [facility] Miscellaneous Medication 0 ml 11/06/23 06:00 Tropicam./Phenyleph. 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 Femoroacetabular impingement of right hip M25.851 Degenerative joint disease of right hip M16.11 Hypothyroid E03.9 Bipolar 1 disorder F31.9 Psoriatic arthritis L40.50 Fatigue R53.83 Arthritis of left shoulder region M19.012 Arthritis of right shoulder region M19.011 Arthritis of knee, left M17.12 Knee pain, left M25.562 Tendonitis of long head of biceps brachii of right shoulder M75.21 Memory problem R41.3 Tinnitus 10/24/13 H93.19 Medical History Medical History 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 Left ACL tear MCL sprain of left knee Rotator cuff tear, right Temporal arteritis Surgical History Surgical History History of total knee arthroplasty 2015 S/P shoulder surgery 2013 acromioplasty left 2014 right rotator cuff exploration Tobacco Smoking/Tobacco Use Status: Never Passive smoking exposure: Yes Second hand exposure: Yes Alcohol Alcohol Intake: former Substance Use Substance use type: does not use Vital Signs and Lab Results Vital Signs Most Recent Vital Signs in EMR: Temp Pulse Resp BP Pulse Ox 36.4 C L 78 16 126/80 97 11/06/23 12:45 11/06/23 12:45 11/06/23 12:45 11/06/23 12:45 11/06/23 12:45 Lab Results Blood Type / Crossmatch: No Data to Display Complete Blood Count: No Data to Display Complete Metabolic Panel: No Data to Display Liver Function Panel: No Data to Display Coagulation Panel: No Data to Display Cardiac Panel: No Data to Display Arterial Blood Gas: No Data to Display Venous Blood Gas: No Data to Display Pancreas Panel: No Data to Display Thyroid Panel: No Data to Display Infectious Disease: No Data to Display Blood Cultures: No Data to Display Toxicology Panel: No Data to Display Anesthesia Assessment and Plan Anesthesia History Personal History: No History of Anesthesia Complications Family History: No Family History of Anesthesia Complications Exercise Tolerance Exercise Tolerance: Metabolic Equivalents>4 Cardiac & Pulmonary Exam Cardiac Exam: Normal S1/S2 Heart Sounds Pulmonary Exam: Clear Bilateral Breath Sounds Implantable Cardiac Device Does patient have a Pacemaker or an ICD?: No Airway Exam Known Difficult Airway: No Mallampati Class: 3 Mouth Opening: Normal (> 3cm) Thyromental Distance: Less than 3 cm Neck Range of Motion: Full ROM Neck Circumference: Normal Teeth Condition: Normal Dentition and Removable Dentures/Plates Upper ASA Classification ASA Score: ASA 2 Emergency Case?: No NPO Status NPO Status: NPO Clears >2 hours, Solids >8 hours Anesthesia Plan Resuscitation Status: Full Code Anesthesia Technique: MAC Anesthesia Airway Planned: Natural Airway Monitors Used: Standard Monitors Preoperative Comments:: 73 yo male for cataract removal. would like MKO. Sig PMHx: bipolar (lithium, paroxetine), psoriatic arthritis (methotrexate, followed by [facility] rheum), hypothyroid (on replacement), never smoker.
[2023-11-06 12:33] VITALS: BMI 26.3
[2023-11-06 12:45] VITALS: BP 126/80; PULSE 78; RESP 16; TEMP 36.4; O2SAT 97
[2023-11-06] MEDS: Lidocaine 1% Pres-Free 5 ML VIAL (14:22)
[2023-11-06] MEDS: Duovisc Viscoelastic System EACH 1 EACH (14:25)
[2023-11-06] MEDS: Povidone-Iodine Ophth 30 ML BTL (14:25)
[2023-11-06] MEDS: Tetracaine 0.5% 4 ML BTL OD (14:26)
[2023-11-06] MEDS: Balanced Salt Soln.-PLUS 500 ML BAG OP (14:26)
[2023-11-06 14:55] VITALS: BP 124/78; PULSE 70; RESP 16; TEMP 36.4; O2SAT 96
--- NOTE | 2023-11-06 14:55 | W.PM.DSUDISC ---
Date of service: 11/06/23 Time of Service: 14:55 Discharge Plan Disposition Patient Disposition: Home Discharge Details Attending Provider: Errol Bermudez Primary Care Provider: Araceli Dubois Home Meds and New Rx's Prescriptions: No Action naproxen sodium [Aleve] 220 mg capsule 220 mg PO BID PRN Eye Drops (with povidone) 15 ML drops 15 ml Ophthalmic DIRECTED folic acid 1 mg tablet 1 mg PO DAILY levothyroxine [Synthroid] 75 mcg tablet 75 mcg PO HS Qty: 90 4RF lithium carbonate 300 mg capsule 600 mg PO HS Qty: 180 4RF paroxetine HCl 20 mg tablet 20 mg PO DAILY Qty: 90 3RF methotrexate sodium 2.5 mg tablet 15 mg PO QWEEK Patient Comments: takes 4 tabs Q thursday and Thursday Discharge Instructions Stand Alone Forms: [facility] Post-Op Cataract, Daniela Franklin (DSU) Discharge Orders Discharge Orders: Discharge Order (Routine); Ordered 11/06/23 Ordered By: Errol Bermudez DS: Diagnosis Discharge Diagnosis (1) Nuclear age-related cataract, right eye: Status: Resolved (2) Primary open-angle glaucoma, right eye, moderate stage: Status: Chronic
--- NOTE | 2023-11-06 14:57 | ROE_ITS ---
Date of service: 11/06/23 Time of Service: 14:57 Operative Note Operative Note DATE OF PROCEDURE: 11/06/23 PRE-OP DIAGNOSIS: Nuclear cataract, right eye Primary open-angle glaucoma, right eye, moderate stage POST-OP DIAGNOSIS: same PROCEDURE: 1. Cataract extraction using phacoemulsification with intraocular lens implant, right eye 2. Insertion of multiple anterior segment aqueous drainage devices (Glaukos iStent inject) into trabecular meshwork, right eye SURGEON: Errol Bermudez ANESTHESIA TYPE: Local By Surgeon and MAC Refer to Anesthesia Record PATHOLOGY: none sent COMPLICATIONS: None Patient was transported to: same day Patient's condition: stable Implants: 1. Delfin Clareon CCA0T0 intraocular lens 2. Glaukos iStent inject trabecular micro-bypass stents Indications: 1. Progressive decreased vision due to cataract, right eye 2. Open angle glaucoma, right eye Procedure Description: CATARACT SURGERY OPERATIVE REPORT PREOPERATIVE DIAGNOSIS: Nuclear cataract, right eye Primary open-angle glaucoma, right eye, moderate stage POSTOPERATIVE DIAGNOSIS: Same OPERATION: 1. Cataract extraction using phacoemulsification with posterior chamber intraocular lens implant, right eye. 2. Insertion of multiple anterior segment aqueous drainage devices (Glaukos iStent inject) into trabecular meshwork, right eye IOL: IOL Delfin Clareon CCA0T0 intraocular lens IOL Power: + 18.5 diopters IOL Serial Number: [id number] Optic Diameter: 6.0mm Haptic/Overall Diameter: 13.0mm PHACO INFO: Delfin Centurion Vision System with OZil and Active Fluidics Cumulative Dispersed Energy (CDE): 6.60 seconds TRABECULAR MICRO-BYPASS STENT INFO: Glaukos iStent inject x 3 Reference Number: [id number] Serial Number: [id number] SURGEON: Errol Bermudez MD, SOLEDAD ANESTHESIA: Monitored Anesthesia Care (MAC), with local sub-tenon's anesthetic infiltration COMPLICATIONS: None SPECIMENS: None INDICATIONS FOR PROCEDURE: The patient is a 73-year-old male with history of diminished visual acuity in his right eye secondary to the development of nuclear cataract. He also has a history of moderate stage primary open-angle glaucoma of the right eye which is treated with 1 topical medication. The option of cataract surgery was offered to the patient, in addition to trabecular micro-bypass stent to treat his glaucoma. He wished to proceed. See office notes for detailed information. PROCEDURE: The correct surgical eye was identified and marked as the right eye and the pupil was dilated in the preoperative area using mydriatics and cycloplegics. The dilated pupil size was 7.0 mm. Oral sedation was administered in the form of an Imprimis MKO Melt (midazolam 3mg/ketamine 25mg/ondansetron 2mg). The patient was brought to the operating room where cardiopulmonary monitoring was instituted and surgical time-out was performed, confirming the correct operative eye and IOL power. Topical anesthesia was administered and ophthalmic povidone-iodine 5% was instilled into the conjunctival fornices. The caryn-ocular area was prepped with Betadine 10% solution and draped in the usual sterile fashion for intraocular surgery, including an aperture drape. A Tegaderm transparent film dressing was cut in half and used to cover the lashes and lid margins. Care was taken to sequester the lashes and lid margins under the Tegaderm dressing. A lid speculum was placed between the lids of the operative eye and the Delfin LuxOR Revalia operating microscope was maneuvered into position. Santos scissors were then used to make a conjunctival buttonhole approximately 6mm posterior to the limbus in the inferonasal quadrant. Blunt dissection was carried out to expose bare sclera, and a blunt-tipped sub-tenon?s anesthesia cannula was introduced and passed posteriorly along the globe where non- preserved plain lidocaine was injected into posterior sub-Tenon?s space. A si deport knife was used to make a paracentesis port. Intraocular phenylephrine/lidocaine was injected into the anterior chamber. The anterior chamber was then filled with viscoelastic. A keratome knife was used to construct a 2-plane clear corneal tunnel extending 2.0mm into clear cornea. A flap was raised on the anterior capsule and capsulorhexis forceps were used to complete a continuous curvilinear capsulorhexis of 5.0 mm. Balanced salt solution was then used to perform cortical cleaving hydrodissection and nuclear hydrodelineation until the lens could be freely rotated within the capsular bag. The lens nucleus was then disassembled and removed within the capsular bag and iris plane using phacoemulsification. Residual cortical material was removed using the irrigation/aspiration snow ndpiece. The posterior capsule was carefully polished to remove as much residual lens epithelial cells as safely possible. The capsular bag was then inflated and the anterior chamber deepened with cohesive viscoelastic. The lens implant described above was inserted into the capsular bag using the pre-loaded Delfin Autonome Injector. A Kuglen hook was used to dial the IOL into position. The anterior chamber was then slightly over-filled with viscoelastic. The microsope and the patient's head were tilted into the ideal position for viewing of the anterior chamber angle. Viscoelastic was placed on the cornea followed by a surgical gonionlens, and the anterior chamber angle landmarks were identified. The Bombfell iStent inject Infinite handpiece was introduced into th e anterior chamber under direct visualization. . The trocar was advanced through the central portion of the trabecular meshwork and into the back wall of Schlemm's canal in the inferonasal quadrant, with care taken to ensure the micro-insertion tube was perpendicular to the trabecular meshwork. The trabecular meshwork was lightly dimpled and the stent was injected without difficulty. The same procedure was then performed in the superiornasal quadrant. The same procedure was then performed in the nasal quadrant. The stents were then examined and noted to be in good position within the trabecular meshwork. The superiormost stent appeared to be slightly posteriorly placed. A moderate amount of hemorrhage from each stent aperture was noted. The microscope and the patients head were returned to the normal coaxial position. Viscoelatic was then removed from the anterior chamber using the I/A handpiece. The lens implant was noted to center nicely within the capsular bag. The incisions were stromally hydrated, and the anterior chamber was reformed using BSS. Then 0.5cc of moxifloxacin 1.0mg/ml were injected into the capsular bag and anterior chamber. The incisions were checked with a Weck spear and found to be secure. Several drops of ophthalmic povidone-iodine 5% were then applied to the eye followed by two drops of Imprimis combination prednisolone/moxifloxacin/nepafenac solution. The drapes were removed and a clear plastic protective eye shield was placed over the eye. The patient was then returned to Same Day Surgery in stable condition.
[2023-11-06 15:20] VITALS: BP 122/76; PULSE 77; RESP 18; TEMP 36.2; O2SAT 99
--- NOTE | 2023-11-06 15:54 | W.ANESPOSTOP ---
Postoperative Evaluation Date, Time and Location Date Performed: 11/06/23 Time Performed: 15:01 Patient Location: Day Surgery Unit Vital Signs Most Recent Imported Vital Signs: Most Recent Vital Signs Temp Pulse Resp BP Pulse Ox 36.2 C L 77 18 122/76 99 11/06/23 15:20 11/06/23 15:20 11/06/23 15:20 11/06/23 15:20 11/06/23 15:20 Pain Score Most Recent Pain Score: Most Recent Pain Score Pain Level 0 11/06/23 15:20 Assessment Mental Status: Awake (Alert & Oriented to Patient Baseline) Airway and Respiratory Function: Patent airway with normal (patient baseline) respiratory exam Cardiovascular Function: Hemodynamically Stable Hydration Status: Adequately Hydrated Nausea & Vomiting: No Nausea or Vomiting Pain: Pt. Denies Any Pain Peripheral Nerve Block: Patient did not receive a nerve block
== END 2023-11-06 15:20 | disposition home or self-care (01) ==
LOC: SUR 11:45
PROVIDERS: PCP Nurse Practitioner Family; Visit Provider Ophthalmology
PROC: (CPT 66991; principal; 2023-11-06 15:15)
DX: H25.11 Age-related nuclear cataract, right eye (principal); H40.1112 Primary open-angle glaucoma, right eye, moderate stage; E03.9 Hypothyroidism, unspecified; L40.50 Arthropathic psoriasis, unspecified; M31.6 Other giant cell arteritis; F31.9 Bipolar disorder, unspecified
CPT/HCPCS: 66991; 00123; V2632; J2003

== ENCOUNTER 2023-11-16 08:58 | Outpatient (CLI) | payer MEDICARE, BC, SELFPAY ==
[2023-11-16 12:23] LABS: Abs Immature Grans 0.01 10^3/uL (0.0-0.06); Absolute Basophil Count 0.01 10^3/uL (0.0-0.2); Absolute Eosinophil Count 0.02 10^3/uL (0.0-0.7); Absolute Lymphocyte Count 1.14 10^3/uL (1.2-3.4); Absolute Monocyte Count 0.35 10^3/uL (0.1-0.8); Absolute Neutrophil Count 2.34 10^3/uL (1.2-6.7); Basophils % 0.3 %; Eosinophils % 0.5 %; HCT 41.6 % (40.0-50.0); Immature Grans % 0.3 %; Lymphocytes % 29.5 %; MCH 27.5 pg (27.0-33.0); MCHC 31.3 % (32.0-36.0); MCV 88 fL (80-95); Neutrophils % 60.4 %; Platelet Count 301 10^3/uL (130-400); RBC 4.73 10^6/uL (4.36-5.78); RDW 18.1 % (11.8-14.1); RDW-SD 58.1 fL; WBC 3.87 10^3/uL (4.4-10.8)
[2023-11-16 12:25] LABS: ESR 17 mm/hr (0-20)
[2023-11-16 12:53] LABS: ALT 18 U/L (16-63); AST 26 U/L (15-37); Albumin 3.7 g/dL (3.4-5.0); Alkaline Phosphatase 163 U/L (46-116); Anion Gap 8.7 mmol/L (3-11); BUN 18 mg/dL (7-18); Bilirubin, Total 0.5 mg/dL (0.2-1.0); CO2 26.3 mmol/L (21.0-32.0); Calcium 9.1 mg/dL (8.5-10.1); Calculated LDL 131 mg/dL (<100); Chloride 107 mmol/L (98-107); Cholesterol 203 mg/dL (<200); Estimated GFR 80.47 (mL/min/1.73m2); Folate 13.4 ng/mL (8.6-20.0); Glucose 92 mg/dL (74-106); HDL Cholesterol 51 mg/dL (40-60); Potassium 3.8 mmol/L (3.5-5.1); Sodium 142 mmol/L (136-145); TSH (W/Ref FT4) 2.29 uIU/mL (0.36-3.74); Total Protein 7.6 g/dL (6.4-8.2); Triglyceride 108 mg/dL (<150)
[2023-11-16 13:05] LABS: Lithium 0.4 mmol/L (0.6-1.2)
== END 2023-11-16 08:59 | disposition home or self-care (01) ==
LOC: LOS 08:58
PROVIDERS: Internal Medicine; PCP Nurse Practitioner Family; Referring Provider Nurse Practitioner Family; Visit Provider Nurse Practitioner Family
DX: E03.9 Hypothyroidism, unspecified (principal); E53.8 Deficiency of other specified B group vitamins; F31.89 Other bipolar disorder; L40.50 Arthropathic psoriasis, unspecified; Z79.899 Other long term (current) drug therapy; R79.89 Other specified abnormal findings of blood chemistry; Z51.81 Encounter for therapeutic drug level monitoring
CPT/HCPCS: 36415; 80053; 80061; 85027; 85652; 80178; 82746; 84443; 85025

== ENCOUNTER 2023-11-20 11:49 | Day surgery (SDC) | payer MEDICARE, BC, SELFPAY ==
--- NOTE | 2023-11-20 11:40 | W.ANESPRE ---
General Info Date of Service Date Performed: 11/20/23 Height: 6 ft Weight: 88.451 kg Body Mass Index (BMI): 26.4 Surgical Procedure: Operation Date: 11/20/23 15:40 Proposed Procedure Side Surgeon p Cataract Extraction with IOL Implant w/Glaucoma Stent Left Errol Bermudez MD Meds Allergies and Home Medications Allergies Allergy/AdvReac Type Severity Reaction Status Date / Time No Known Allergies Allergy Verified 11/20/23 12:19 Home Medication Medication Instructions Recorded tetrahydrozoline 0.05 %[id number] 15 ml ophthalmic (eye) DIRECTED 12/29/17 0.1 %[id number] 1 %-povdn 1 % eye drops (Eye Drops (with povidone)) naproxen sodium 220 mg capsule 220 mg PO BID PRN 06/17/22 (Aleve) folic acid 1 mg tablet 1 mg PO DAILY 02/12/23 methotrexate sodium 2.5 mg tablet 15 mg PO QWEEK 02/12/23 levothyroxine 75 mcg tablet 75 mcg PO HS #90 tabs 02/19/23 (Synthroid) lithium carbonate 300 mg capsule 600 mg (2 x 300 mg) PO HS #180 caps 04/06/23 paroxetine HCl 20 mg tablet 20 mg PO DAILY #90 tabs 09/01/23 brinzolamide 1 %-brimonidine 0.2 % 1 drp ophthalmic (eye) BID 11/16/23 eye drops,suspension (Simbrinza) Current Visit Medications: Current Medications Generic Name Dose Route Start Last Admin Trade Name Freq PRN Reason Stop Dose Admin Acetaminophen 1,000 mg 11/20/23 06:00 Acetaminophen 500 Mg Tab PO 12/20/23 05:59 Q4H PRN PRN Balanced Salt Solution 500 ml 11/20/23 06:00 Balanced Salt Soln.-Plus 500 Ml Bag OP 12/20/23 05:59 DIRECTED LIYA Miscellaneous Medication 0 ml 11/20/23 06:00 Prednisolone 1%, Moxifloxacin 0.5%, Bromfenac 0.09% 5ml Btl OS 12/20/23 05:59 DIRECTED LIYA Miscellaneous Medication 0 ml 11/20/23 06:00 Tropicam./Phenyleph. 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 Femoroacetabular impingement of right hip M25.851 Degenerative joint disease of right hip M16.11 Hypothyroid E03.9 Bipolar 1 disorder F31.9 Psoriatic arthritis L40.50 Fatigue R53.83 Arthritis of left shoulder region M19.012 Arthritis of right shoulder region M19.011 Arthritis of knee, left M17.12 Knee pain, left M25.562 Tendonitis of long head of biceps brachii of right shoulder M75.21 Memory problem R41.3 Tinnitus 14/ H93.19 Medical History Medical History 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 Left ACL tear MCL sprain of left knee Rotator cuff tear, right Temporal arteritis Surgical History Surgical History History of total knee arthroplasty 2015 S/P shoulder surgery 2013 acromioplasty left 2014 right rotator cuff exploration Tobacco Smoking/Tobacco Use Status: Never Passive smoking exposure: Yes Second hand exposure: Yes Alcohol Alcohol Intake: former Substance Use Substance use: Never Substance use type: does not use Vital Signs and Lab Results Vital Signs Most Recent Vital Signs in EMR: Temp Pulse Resp BP Pulse Ox 36.4 C L 72 18 122/84 98 11/20/23 12:00 11/20/23 12:00 11/20/23 12:00 11/20/23 12:00 11/20/23 12:00 Lab Results Blood Type / Crossmatch: No Data to Display Complete Blood Count: White Blood Count TNP 11/16/23 10:33 Red Blood Count TNP 11/16/23 10:33 Hemoglobin TNP 11/16/23 10:33 Hematocrit TNP 11/16/23 10:33 Platelet Count TNP 11/16/23 10:33 Complete Metabolic Panel: Sodium 142 mmol/L (136-145) 11/16/23 10:22 Potassium 3.8 mmol/L (3.5-5.1) 11/16/23 10:22 Chloride 107 mmol/L (98-107) 11/16/23 10:22 Carbon Dioxide 26.3 mmol/L (21.0-32.0) 11/16/23 10:22 BUN 18 mg/dL (7-18) 11/16/23 10:22 Creatinine 1.0 mg/dL (0.70-1.30) 11/16/23 10:22 Est GFR (CKD-EPI 2020) 80.47 (mL/min/1.73m2) 11/16/23 10:22 Calcium 9.1 mg/dL (8.5-10.1) 11/16/23 10:22 Albumin 3.7 g/dL (3.4-5.0) 11/16/23 10:22 Glucose 92 mg/dL (74-106) 11/16/23 10:22 Liver Function Panel: Alanine Aminotransferase (ALT/SGPT) 18 U/L (16-63) 11/16/23 10:22 Aspartate Amino Transf (AST/SGOT) 26 U/L (15-37) 11/16/23 10:22 Coagulation Panel: No Data to Display Cardiac Panel: No Data to Display Arterial Blood Gas: No Data to Display Venous Blood Gas: No Data to Display Pancreas Panel: No Data to Display Thyroid Panel: Thyroid Stimulating Hormone (TSH) 2.29 uIU/mL (0.36-3.74) 11/16/23 10:22 Infectious Disease: No Data to Display Blood Cultures: No Data to Display Toxicology Panel: No Data to Display Anesthesia Assessment and Plan Anesthesia History Personal History: No History of Anesthesia Complications Family History: No Family History of Anesthesia Complications Exercise Tolerance Exercise Tolerance: Metabolic Equivalents>4 Cardiac & Pulmonary Exam Cardiac Exam: Normal S1/S2 Heart Sounds Pulmonary Exam: Clear Bilateral Breath Sounds Implantable Cardiac Device Does patient have a Pacemaker or an ICD?: No Airway Exam Known Difficult Airway: No Mallampati Class: 3 Mouth Opening: Normal (> 3cm) Thyromental Distance: Less than 3 cm Neck Range of Motion: Full ROM Neck Circumference: Normal Teeth Condition: Normal Dentition and Removable Dentures/Plates Upper ASA Classification ASA Score: ASA 2 Emergency Case?: No NPO Status NPO Status: NPO Clears >2 hours, Solids >8 hours Anesthesia Plan Resuscitation Status: Full Code Anesthesia Technique: MAC Anesthesia Airway Planned: Natural Airway Monitors Used: Standard Monitors Preoperative Comments:: 73 yo male for cataract removal. no health history change. would like MKO again. Sig PMHx: bipolar (lithium, paroxetine), psoriatic arthritis (methotrexate, followed by [facility] [place] [facility] rheum), hypothyroid (on replacement), never smoker.
[2023-11-20 11:42] VITALS: BMI 26.4
[2023-11-20 12:00] VITALS: BP 122/84; PULSE 72; RESP 18; TEMP 36.4; O2SAT 98
[2023-11-20] MEDS: Povidone-Iodine Ophth 30 ML BTL (13:21)
[2023-11-20] MEDS: Tetracaine 0.5% 4 ML BTL OS (13:21)
[2023-11-20] MEDS: Balanced Salt Soln.-PLUS 500 ML BAG OP (13:28)
[2023-11-20] MEDS: Duovisc Viscoelastic System EACH 1 EACH (13:29)
[2023-11-20] MEDS: Lidocaine 1% Pres-Free 5 ML VIAL (13:29)
--- NOTE | 2023-11-20 13:59 | W.PM.DSUDISC ---
Date of service: 11/20/23 Time of Service: 14:00 Discharge Plan Disposition Patient Disposition: Home Discharge Details Attending Provider: Errol Bermudez Primary Care Provider: Araceli Dubois Home Meds and New Rx's Prescriptions: No Action naproxen sodium [Aleve] 220 mg capsule 220 mg PO BID PRN Simbrinza 1-0.2 % drops,suspension 1 drp ophthalmic (eye) BID Patient Comments: INSTILL ONE DROP IN EACH EYE TWO TIMES A DAY Eye Drops (with povidone) 15 ML drops 15 ml Ophthalmic DIRECTED folic acid 1 mg tablet 1 mg PO DAILY levothyroxine [Synthroid] 75 mcg tablet 75 mcg PO HS Qty: 90 4RF lithium carbonate 300 mg capsule 600 mg PO HS Qty: 180 4RF paroxetine HCl 20 mg tablet 20 mg PO DAILY Qty: 90 3RF methotrexate sodium 2.5 mg tablet 15 mg PO QWEEK Patient Comments: takes 4 tabs Q thursday and Thursday Discharge Instructions Stand Alone Forms: DSU Post-Op CataractDaniela (DSU) Discharge Orders Discharge Orders: Discharge Order (Routine); Ordered 11/20/23 Ordered By: Errol Bermudez DS: Diagnosis Discharge Diagnosis (1) Nuclear age-related cataract, left eye: Status: Resolved (2) Primary open-angle glaucoma, left eye, moderate stage: Status: Chronic
[2023-11-20 14:00] VITALS: BP 125/76; PULSE 62; RESP 18; TEMP 36.6; O2SAT 97
--- NOTE | 2023-11-20 14:04 | W.PM.OP ---
Date of service: 11/20/23 Time of Service: 14:04 Operative Note Operative Note DATE OF PROCEDURE: 11/20/23 PRE-OP DIAGNOSIS: Nuclear cataract, left eye Primary open-angle glaucoma, left eye, moderate stage POST-OP DIAGNOSIS: same PROCEDURE: Cataract extraction using phacoemulsification with intraocular lens implant, left eye Implantation of mulitple trabecular micro-bypass stents SURGEON: Errol Bermudez ANESTHESIA TYPE: Local By Surgeon and MAC Refer to Anesthesia Record PATHOLOGY: none sent COMPLICATIONS: None Patient was transported to: same day Patient's condition: stable Implants: Delfin Clareon CCA0T0 Glaukos iStents Indications: Progressive decreased vision due to cataract, left eye Primary open angle glaucoma, left eye Procedure Description: CATARACT SURGERY OPERATIVE REPORT PREOPERATIVE DIAGNOSIS: Nuclear cataract, left eye Primary open-angle glaucoma, left eye, moderate stage POSTOPERATIVE DIAGNOSIS: Same OPERATION: 1. Cataract extraction using phacoemulsification with posterior chamber intraocular lens implant, left eye. 2. Insertion of multiple anterior segment aqueous drainage devices (Glaukos iStent) into trabecular meshwork, left eye IOL: IOL Fire Suppression Captain/Model: Delfin Clareon CCA0T0 IOL Power: + 19.0 diopters IOL Serial Number: [id number] Optic Diameter: 6.0mm Haptic/Overall Diameter: 13.0mm PHACO INFO: Delfin Centurion Vision System with OZil and Active Fluidics Cumulative Dispersed Energy (CDE): 7.63 seconds TRABECULAR MICRO-BYPASS STENT INFO: Glaukos iStent x 2 Reference Number: [id number] Serial Number: [id number] SURGEON: Errol Bermudez MD, SOLED[place] ANESTHESIA: Monitored Anesthesia Care (MAC), with local sub-tenon's anesthetic infiltration COMPLICATIONS: None SPECIMENS: None INDICATIONS FOR PROCEDURE: The patient is a 73-year-old male with history of progressive decreased vision in both eyes secondary to the developed bilateral nuclear cataract. He also has a history of primary medical glaucoma, moderate stage, both eyes, controlled on 1 medication. He has already undergone cataract surgery in the right eye with implantation of microtrabecular bypass stent. He is doing well postoperatively, and now presents for cataract surgery with microtrabecular bypass stent implantation in the left eye. See office notes for detailed information. PROCEDURE: The correct surgical eye was identified and marked as the left eye and the pupil was dilated in the preoperative area using mydriatics and cycloplegics. The dilated pupil size was 6.0 mm. Oral sedation was administered in the form of an Imprimis MKO Melt (midazolam 3mg/ketamine 25mg/ondansetron 2mg). The patient was brought to the operating room where cardiopulmonary monitoring was instituted and surgical time-out was performed, confirming the correct operative eye and IOL power. Topical anesthesia was administered and ophthalmic povidone-iodine 5% was instilled into the conjunctival fornices. The caryn-ocular area was prepped with Betadine 10% solution and draped in the usual sterile fashion for intraocular surgery, including an aperture drape. A Tegaderm transparent film dressing was cut in half and used to cover the lashes and lid margins. Care was taken to sequester the lashes and lid margins under the Tegaderm dressing. A lid speculum was placed between the lids of the operative eye and the Delfin LuxOR Revalia operating microscope was maneuvered into position. Santos scissors were then used to make a conjunctival buttonhole approximately 6mm posterior to the limbus in the inferonasal quadrant. Blunt dissection was carried out to expose bare sclera, and a blunt-tipped sub-tenon?s anesthesia cannula was introduced and passed posteriorly along the globe where non-preserved plain lidocaine was injected into posterior sub-Tenon?s space. A sideport knife was used to make a paracentesis port superiorly/superiortemporally. Intraocular phenylephrine/lidocaine was injected into the anterior chamber. The anterior chamber was then filled with viscoelastic. A keratome knife was used to construct a clear corneal tunnel extending 2.0mm into clear cornea. . A flap was raised on the anterior capsule and capsulorhexis forceps were used to complete a continuous curvilinear capsulorhexis of 5.0 mm. Balanced salt solution was then used to perform cortical cleaving hydrodissection and nuclear hydrodelineation until the lens could be freely rotated within the capsular bag. The lens nucleus was then disassembled and removed within the capsular bag and iris plane using phacoemulsification. Residual cortical material was removed using the 45-degree angled silicone I/A tip with 0.3mm port. The posterior capsule was carefully polished to remove as much residual lens epithelial cells as safely possible. The capsular bag was then inflated and the anterior chamber deepened with viscoelastic. The lens implant described above was inserted into the capsular bag using the Delfin Autonome pre-loaded injector. A Kuglen hook was used to dial the IOL into position. The anterior chamber was then slightly over-filled with viscoelastic. The microsope and the patient's head were tilted into the ideal position for viewing of the anterior chamber angle. Viscoelastic was placed on the cornea followed by a surgical gonionlens, and the anterior chamber angle landmarks were identified. The Razorsight iStent injection handpiece was introduced into the anterior chamber and the insertion sleeve was retracted. The trocar was advanced through the central portion of the trabecular meshwork and into the back wall of Schlemm's canal in the nasal quadrant, with care taken to ensure the micro-insertion tube was perpendicular to the trabecular meshwork. The trabecular meshwork was lightly dimpled and the stent was injected without difficulty. The same procedure was then performed in the inferiornasal quradrant. A third stent was then injected into the superiornasal quadrant. The stents were then examined and noted to be in good position within the trabecular meshwork,, although the inferior nasal stent was slightly protruding from the trabecular meshwork. An attempt was made to recannulate the stent, but it became completely dislodged into the anterior chamber. A moderate amount of hemorrhage from the trabecular meshwork was noted, obscuring the view. The irrigation/aspiration handpiece was then used to remove the stent rather than attempt another recannulation. The remaining 2 stents were in good position.. The microscope and the patients head were returned to the normal coaxial position. Viscoelatic was then removed from the anterior chamber using the I/A handpiece. Blanching of the deep conjunctival vessels was noted nasally during removal of viscoelastic. The lens implant was noted to center nicely within the capsular bag. The incisions were stromally hydrated, and the anterior chamber was reformed using BSS. Then 0.5cc of moxifloxacin 1.0mg/ml were injected into the capsular bag and anterior chamber. The incisions were checked with a Weck spear and found to be secure. Several drops of ophthalmic povidone-iodine 5% were then applied to the eye followed by two drops of Imprimis combination prednisolone/moxifloxacin/nepafenac solution. The drapes were removed and a clear plastic protective eye shield was placed over the eye. The patient was then returned to Same Day Surgery in stable condition..
--- NOTE | 2023-11-20 14:16 | W.ANESPOSTOP ---
Postoperative Evaluation Date, Time and Location Date Performed: 11/20/23 Time Performed: 14:16 Patient Location: Day Surgery Unit Vital Signs Most Recent Imported Vital Signs: Most Recent Vital Signs Temp Pulse Resp BP Pulse Ox 36.6 C 62 18 125/76 97 11/20/23 14:00 11/20/23 14:00 11/20/23 14:00 11/20/23 14:00 11/20/23 14:00 Pain Score Most Recent Pain Score: Most Recent Pain Score Pain Level 0 11/20/23 14:00 Assessment Mental Status: Awake (Alert & Oriented to Patient Baseline) Airway and Respiratory Function: Patent airway with normal (patient baseline) respiratory exam Cardiovascular Function: Hemodynamically Stable Hydration Status: Adequately Hydrated Nausea & Vomiting: No Nausea or Vomiting Pain: Pt. Denies Any Pain Peripheral Nerve Block: Patient did not receive a nerve block
[2023-11-20 14:25] VITALS: BP 109/76; PULSE 68; RESP 18; TEMP 36.6; O2SAT 99
== END 2023-11-20 14:25 | disposition home or self-care (01) ==
LOC: SUR 11:50
PROVIDERS: PCP Nurse Practitioner Family; Visit Provider Ophthalmology
PROC: (CPT 66991; principal; 2023-11-20 15:30)
DX: H25.12 Age-related nuclear cataract, left eye (principal); H40.1122 Primary open-angle glaucoma, left eye, moderate stage; E03.9 Hypothyroidism, unspecified
CPT/HCPCS: 66991; 00123; V2632; J2003

== ENCOUNTER 2024-07-01 12:28 | Outpatient (CLI) | payer MEDICARE, BC, SELFPAY ==
[2024-07-01 11:47] LABS: Abs Immature Grans 0.01 10^3/uL (0.0-0.06); Absolute Basophil Count 0.02 10^3/uL (0.0-0.2); Absolute Eosinophil Count 0.03 10^3/uL (0.0-0.7); Absolute Lymphocyte Count 1.34 10^3/uL (1.2-3.4); Absolute Monocyte Count 0.62 10^3/uL (0.1-0.8); Absolute Neutrophil Count 1.52 10^3/uL (1.2-6.7); Basophils % 0.6 %; Eosinophils % 0.8 %; HCT 42.8 % (40.0-50.0); HGB 13.2 g/dL (13.5-17.5); Immature Grans % 0.3 %; Lymphocytes % 37.9 %; MCH 27.6 pg (27.0-33.0); MCHC 30.8 % (32.0-36.0); MCV 89 fL (80-95); MPV 9.9 fL (8.0-11.0); Monocytes % 17.5 %; Neutrophils % 42.9 %; Platelet Count 253 10^3/uL (130-400); RBC 4.79 10^6/uL (4.36-5.78); RDW 18.4 % (11.8-14.1); RDW-SD 60.1 fL; WBC 3.54 10^3/uL (4.4-10.8)
== END 2024-07-01 12:29 | disposition home or self-care (01) ==
LOC: LBO 12:29
PROVIDERS: PCP Nurse Practitioner Family; Visit Provider Internal Medicine
DX: L40.50 Arthropathic psoriasis, unspecified (principal)
CPT/HCPCS: 36415; 85025